=== PATIENT | female | born 1955 | race Caucasian/White ===

== ENCOUNTER → 2020-02-13 | Outpatient (CLI) | payer MEDICARE ==
[~2020-02-13] MED LIST: LACT1CAP37 PO; MOME13HF INH; MOME13HF PO
== END | disposition home or self-care (01) ==
LOC: STAR 11:04
PROVIDERS: ATTEND Colon & Rectal Surgery
DX: Z01.812 Encounter for preprocedural laboratory examination (principal); Z20.828 Contact with and (suspected) exposure to other viral communicable diseases
CPT/HCPCS: 36415; 87635; 93005

== ENCOUNTER 2020-02-18 05:49 | Day surgery (SDC) | payer MEDICARE ==
[~2020-02-18] VITALS: Ht 152.4 cm; Wt 59.0 kg
[2020-02-18 06:52] VITALS: BP 122/70
[2020-02-18] MEDS ORDERED: CHLORHEXIDINE 15 ML UDC ONE (06:54)
[2020-02-18] MEDS ORDERED: LACTATED RINGERS 1,000 ML IV SCH (07:00)
[2020-02-18] MEDS ORDERED: CHLORHEXIDINE 15 ML UDC MM ONE (07:00)
[2020-02-18] MEDS ORDERED: LIDOCAINE-MPF 1%, 2ML INFIL ONE (07:00)
[2020-02-18] MEDS ORDERED: PROPOFOL 10 MG/ML, 50ML ONE (08:10)
== END 2020-02-18 10:15 | disposition home or self-care (01) ==
LOC: OUT 05:49
PROVIDERS: ATTEND Colon & Rectal Surgery
DX: K62.3 Rectal prolapse (principal); D12.2 Benign neoplasm of ascending colon; D12.4 Benign neoplasm of descending colon; D12.3 Benign neoplasm of transverse colon; K57.30 Diverticulosis of large intestine without perforation or abscess without bleeding; K63.89 Other specified diseases of intestine; J44.9 Chronic obstructive pulmonary disease, unspecified; M81.0 Age-related osteoporosis without current pathological fracture; Z79.899 Other long term (current) drug therapy; Z87.891 Personal history of nicotine dependence; Z90.710 Acquired absence of both cervix and uterus; Z99.81 Dependence on supplemental oxygen; Z98.890 Other specified postprocedural states
CPT/HCPCS: 45380; 88305; J7120; J2704